=== PATIENT | female | born 1980 | race Caucasian/White ===

== ENCOUNTER 2018-12-15 10:11 | Observation (INO) | payer OTHER ==
[2018-12-15 10:14] VITALS: BMI 28.3
[2018-12-15 12:28] LABS: URINE BILIRUBIN NEGATIVE (NEGATIVE); URINE BLOOD TRACE-INTACT (NEGATIVE); URINE GLUCOSE (UA) NEGATIVE (NEGATIVE); URINE LEUKOCYTE ESTERASE NEGATIVE Leu/uL (NEGATIVE); URINE PROTEIN TRACE mg/dL (<30 mg/dL); URINE UROBILINOGEN 0.2 E.U./dL (<1 E.U./dL)
[2018-12-15 12:31] LABS: URINE APPEARANCE CLEAR (CLEAR); URINE COLOR YELLOW (YELLOW)
[2018-12-15] MEDS ORDERED: Sodium Chloride 0.9% 1,000 ML IV STA (12:31)
[2018-12-15 12:37] LABS: URINE BACTERIA MANY /hpf
--- NOTE | 2018-12-15 12:41 | ED PDOC ---
Arrival/HPI - General Chief Complaint: Lower Extremity Problem/Injury Historian: Patient - History of Present Illness Narrative History of Present Illness (Text): 12/15/18 12:33 38 year old F presents complaining for RUE and RLE joint pain w/ right foot s welling for the last couple days. Patient mentioned it was worst at night. She took tylenol which provided little relief. Patient visited Dr. Main yesterday who diagnosed her with rheumatoid arthritis and advised her to present to the ER for further evaluation and inpatient labs. PMD: Dr. Main Time/Duration: < week Symptom Onset: Sudden Symptom Course: Unchanged Activities at Onset: Light Past Medical History - Provider Review Nursing Documentation Reviewed: Yes - Past Medical History Past Medical History: No Previous - Psychiatric Hx Depression: No Hx Emotional Abuse: No Hx Physical Abuse: No Hx Substance Use: No - Past Surgical History Past Surgical History: No Previous - Surgical History Hx Section: Yes (X2) - Suicidal Assessment Feels Threatened In Home Enviroment: No Family/Social History - Physician Review Nursing Documentation Reviewed: Yes Family/Social History: Unknown Family HX Smoking Status: Never Smoked Hx Alcohol Use: No Hx Substance Use: No Allergies/Home Meds Allergies/Adverse Reactions: Allergies No Known Allergies Allergy (Verified 12/15/18 10:58) Home Medications: Home Meds Medication Instructions Recorded Confirmed No Known Home Med 12/15/18 12/15/18 Review of Systems - Physician Review All systems were reviewed & negative as marked: Yes - Review of Systems ENT: absent: Sore Throat, Rhinorrhea, Epistaxis Respiratory: absent: SOB, Cough, Wheezing Cardiovascular: absent: Chest Pain, Palpitations Gastrointestinal: absent: Abdominal Pain, Diarrhea, Nausea, Vomiting Musculoskeletal: Arthralgias (RLE, RUE), Joint Swelling (right ankle) Skin: absent: Rash, Laceration, Abscess Neurological: absent: Headache, Dizziness Physical Exam Vital Signs Reviewed: Yes Vital Signs Temp Pulse Resp BP Pulse Ox 12/15/18 10:12 98.1 F 106 H 18 123/75 99 Temperature: Afebrile Blood Pressure: Normal Pulse: Regular Respiratory Rate: Normal Appearance: Positive for: Well-Appearing, Non-Toxic, Comfortable Pain Distress: Mild Mental Status: Positive for: Alert and Oriented X 3 - Systems Exam Head: Present: Atraumatic, Normocephalic Pupils: Present: PERRL Extroacular Muscles: Present: EOMI Conjunctiva: Present: Normal Mouth: Present: Moist Mucous Membranes Neck: Present: Normal Range of Motion Respiratory/Chest: Present: Clear to Auscultation, Good Air Exchange. No: Respiratory Distress, Accessory Muscle Use Cardiovascular: Present: Regular Rate and Rhythm, Normal S1, S2. No: Murmurs Abdomen: No: Tenderness, Distention, Peritoneal Signs Back: Present: Normal Inspection Upper Extremity: Present: Normal Inspection. No: Cyanosis, Edema Lower Extremity: Present: Edema (mild right ankle edema) Neurological: Present: GCS=15, CN II-XII Intact, Speech Normal Skin: Present: Warm, Dry, Normal Color. No: Rashes Psychiatric: Present: Alert, Oriented x 3, Normal Insight, Normal Concentration Medical Decision Making ED Course and Treatment: 12/15/18 12:41 Impression: 38 year old F presents complaining for RUE and RLE joint pain w/ right foot swelling for the last couple days Plan: -- Labs --Solumedrol --Rocephin --Blood Culture --UA -- Urine Culture -- Toradol -- test -- Reassess and disposition Progress Notes: 12/15/18 13:38 Labs reviewed with unremarkable labs and trace blood and bacteria within the urine. Shared decision making with patient who is amenable to staying for Observation. Discussed case with Dr. Main(PCP) who requests for patient to stay in the hospital for Observation. - Lab Interpretations Lab Results: Urine Color Yellow (YELLOW) 12/15/18 12:04 Urine Appearance Clear (CLEAR) 12/15/18 12:04 Urine pH 6.0 (4.7-8.0) 12/15/18 12:04 Ur Specific Butler 1.025 (1.005-1.035) 12/15/18 12:04 Urine Protein Trace mg/dL (<30 mg/dL) H 12/15/18 12:04 Urine Glucose (UA) Negative mg/dL (NEGATIVE) 12/15/18 12:04 Urine Ketones Negative mg/dL (NEGATIVE) 12/15/18 12:04 Urine Blood Trace-intact (NEGATIVE) H 12/15/18 12:04 Urine Nitrate Negative (NEGATIVE) 12/15/18 12:04 Urine Bilirubin Negative (NEGATIVE) 12/15/18 12:04 Urine Urobilinogen 0.2 E.U./dL (<1 E.U./dL) 12/15/18 12:04 Ur Leukocyte Esterase Negative Ant/uL (NEGATIVE) 12/15/18 12:04 - Medication Orders Current Medication Orders: Sodium Chloride (Sodium Chloride 0.9%) 1,000 mls @ 999 mls/hr IV .Q1H1M STA Stop: 12/15/18 13:31 Ketorolac Tromethamine (Toradol) 30 mg IVP ONCE ONE Stop: 12/15/18 12:32 Discontinued Medications Ketorolac Tromethamine (Toradol) 30 mg IM Q6 YOSEF - Scribe Statement The provider has reviewed the documentation as recorded by the Steven Little All medical record entries made by the Steven were at my direction and personally dictated by me. I have reviewed the chart and agree that the record accurately reflects my personal performance of the history, physical exam, medical decision making, and the department course for this patient. I have also personally directed, reviewed, and agree with the discharge instructions and disposition. Disposition/Present on Arrival - Present on Arrival Any Indicators Present on Arrival: No History of DVT/PE: No History of Uncontrolled Diabetes: No Urinary Catheter: No History of Decub. Ulcer: No History Surgical Site Infection Following: None - Disposition Have Diagnosis and Disposition been Completed?: Yes Diagnosis: Joint pain Disposition Time: 13:30 Patient Plan: Observation Condition: STABLE Referrals: Will Main MD [Primary Care Provider] - Follow up with primary Forms: [phone] ([place])
[2018-12-15 12:58] LABS: BASO # 0.01 K/mm3 (0.0-2.0); BASO % 0.2 % (0.0-3.0); EOS % 0.7 % (1.5-5.0); HEMOGLOBIN 10.9 g/dL (12.0-16.0); LYMPH # 1.9 (1.2-3.4); LYMPH % 32.5 % (22.0-35.0); MEAN CELL VOLUME 75.4 fl (80.0-105.0); MEAN CORPUSCULAR HEMOGLOBIN 23.9 pg (25.0-35.0); MEAN CORPUSCULAR HGB CONC 31.7 g/dl (31.0-37.0); MEAN PLATELET VOLUME 9.8 fl (7.0-11.0); MONO # 0.3 (0.1-0.6); MONO % 4.4 % (1.0-6.0); RBC 4.56 10^6/uL (3.5-6.1); RED CELL DISTRIBUTION WIDTH 14.4 % (11.5-14.5); WHITE BLOOD COUNT 5.9 10^3/uL (4.5-11.0)
[2018-12-15 13:07] LABS: INR 1.42; PARTIAL THROMBOPLASTIN TIME 33.4 Seconds (26.9-38.3); PROTHROMBIN TIME 16.1 SECONDS (9.4-12.5)
[2018-12-15 13:11] LABS: ALB/GLOB RATIO 0.9 (1.1-1.8); ALBUMIN 3.8 g/dL (3.0-4.8); ALT/SGPT 21 U/L (7-56); AST/SGOT 28 U/L (14-36); BLOOD UREA NITROGEN 10 mg/dL (7-21); CALCIUM 8.9 mg/dL (8.4-10.5); GFR NON-AFRICAN AMERICAN > 60; URIC ACID 4.3 mg/dL (2.5-6.2)
[2018-12-15 13:23] LABS: TROPONIN I < 0.01 ng/mL
[2018-12-15] MEDS ORDERED: cefTRIAXone 1 gm 1 GM/100 ML BAG IVPB STA (13:37)
[2018-12-15] MEDS: MethylPREDNISolone 40 mg Vial IVP SCH (21:23)
[2018-12-15 22:08] VITALS: RESP 18
[2018-12-15] MEDS: Vancomycin 1gm in NS 250ml 1 GM/250 ML BAG IVPB SCH (23:53)
[2018-12-16] MEDS ORDERED: Pantoprazole 40 mg EC Tab PO SCH (06:00)
[2018-12-16] MEDS: Vancomycin 1gm in NS 250ml 1 GM/250 ML BAG IVPB SCH (09:32)
[2018-12-16] MEDS: MethylPREDNISolone 40 mg Vial IVP SCH (09:32)
[2018-12-16] MEDS ORDERED: cefTRIAXone 2 GM IN NS 2 GM/100 ML BAG IVPB SCH (10:00)
[2018-12-16] MEDS ORDERED: cefTRIAXone 1 gm 1 GM/100 ML BAG IVPB SCH (10:00)
[2018-12-16] MEDS ORDERED: Enoxaparin 40 mg Syringe SC SCH (10:00)
[2018-12-16 11:10] VITALS: O2SAT 96
[2018-12-16 15:19] VITALS: BP 115/71; PULSE 95; TEMP 98
[2018-12-16 18:05] LABS: HEPATITIS B SURFACE AG Negative (NEGATIVE)
[2018-12-16 18:11] LABS: HEPATITIS A IGM NEGATIVE (NEGATIVE); HEPATITIS B CORE AB NEGATIVE (NEGATIVE)
[2018-12-16 18:23] LABS: HEPATITIS C ANTIBODY NEGATIVE (NEGATIVE)
--- NOTE | 2018-12-16 21:25 | CON ---
DATE: 12/16/2018 LOCATION: The patient is seen in 563, bed 2 this morning. CHIEF COMPLAINT: Joint pain x1 month. HISTORY OF PRESENT ILLNESS: A 38-year-old Belgian female, with no significant past medical history, who is admitted now with joint pain. She stated it started with her ankles, bilateral ankle joint, bilateral knee joint, bilateral hip joint, shoulders, and elbows and arms x1 month duration. She states she had a rare , low-grade fevers, one episode of diarrhea. No chest pain. No headaches. PAST MEDICAL HISTORY: Noncontributory. PAST SURGICAL HISTORY: Significant for a x2. ALLERGY: THE PATIENT HAS NO KNOWN ALLERGIES. MEDICATIONS: At home include omeprazole and Pepcid. SOCIAL HISTORY: A pleasant [place] female, who has been in this country now for years. The last travel outside of [facility] was to [place] one year ago. She has no pets. She is with for many years. She has two children of 5 and 10 years old. She is not a smoker. REVIEW OF SYSTEMS: A 12-point review of systems is performed. PHYSICAL EXAMINATION: On exam; GENERAL: She is in bed. No acute distress. VITAL SIGNS: Temperature is 97.4; heart rate of 86, it was up to 106; a respiratory rate of 18; and blood pressure of 112/70. HEENT: Unremarkable. NECK: Supple. LUNGS: Decreased breath sounds. HEART: Normal S1 and S2. ABDOMEN: Soft and nontender. No rebound. No guarding. EXAMINATION OF JOINTS: Revealed no significant erythema. There is some edema of both ankles and no breaking of skin. LABORATORY DATA: Reveals a white count of 5.9, hemoglobin of 10, MCV is 75, and platelets of 395. Chemistry reveals the patient has a creatinine of 0.6. C-reactive protein is 184. LFTs are normal. Sed rate is 93, and urinalysis is noted with 1 to 3 wbcs. Microbiology reveals the urine culture has no growth, and the patient had an ultrasound of the extremities which no results are available. ASSESSMENT AND PLAN: A 38-year-old female from [place] presenting with; 1. Polyarticular arthritis. I doubt gonorrhea in a patient who has a stable marriage with two children in a monogamous relationship, also malalignments in her differential diagnosis, although she has no pets, not been outside of the [facility] which is unusual for Staphylococcus aureus to get bacteremia and polyarticular joint infection with no fevers. We will order blood cultures nevertheless. Group A strep and pneumococcus may behave this way. This is I doubt a post-streptococcal arthritis, she did not have any streptococcal symptoms. The acute rheumatic fever is in her differential diagnosis and since she is from [place] although she did not have a viral illness or a streptococcal infection that she knows of. We will order a hepatitis B although her liver function tests s are not elevated. We will also order a Parvovirus B19 workup. I doubt chikungunya, which may behave like this, but she has no travel history to anywhere with chikungunya. We will empirically start the patient on vancomycin, ceftriaxone, and doxycycline. Dr. Main had started the patient on steroids. Dopplers are pending. She should have a rheumatology evaluation. We will order a Parvovirus B19 antibodies and PCR in addition to hepatitis B, hepatitis panel and hepatitis DNA PCR and hepatitis C viral RNA level. She has not had a rubella vaccine recently, which may also behave as such. I doubt infectious etiology. We will in addition to chikungunya, we will order an HLA-B27 for her reactive arthritis, HLA-B27 antigen and we will follow closely with you. She is pending a Rheumatology evaluation. Morgan Kirkland MD
--- NOTE | 2018-12-17 22:54 | US ---
HISTORY: Leg pain and swelling. Evaluate for DVT PHYSICIAN(S): Rodger Dhaliwal MD. TECHNIQUE: Duplex sonography and color-flow Doppler with graded compression were used to evaluate the deep venous systems of both lower extremities. FINDINGS: The visualized deep venous systems of both lower extremities are sonographically normal and compressible. Normal wave forms and augmentation are seen. There is no sonographic evidence for deep venous thrombosis in the visualized segments of both lower extremities. IMPRESSION: No sonographic evidence for deep venous thrombosis in the visualized segments of both lower extremities.
--- NOTE | 2018-12-18 09:15 | HP ---
DATE OF EXAM: 12/17/2018 CHIEF COMPLAINT: The patient came in complaining of severe generalized joint pains and weakness. 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 She came into the office complaining of generalized joint pain, hips, knee, and ankle. She cannot get up except with difficulty. She has kids, she cannot serve them, her is helping her and the patient is unable to ambulate because of associated generalized multi or polyarthritis or multiple joint pain. Denied any fever, any chills, any nausea, any vomiting, or any trauma. Patient has mainly pain in her both feet, especially when she stands up and also pain in her knees and hips. Also, she complained of pain in her shoulders and elbows. Patient one month ago, she had some dental work, but she never had any history of cardiac disease. No other medical problem except acid reflux symptoms, which is being controlled with medications. PAST MEDICAL HISTORY: As above, acid reflux symptoms. ALLERGIES: NO KNOWN ALLERGIES. SOCIAL HISTORY: No smoking, no drinking. She lives with her and has 2 children. She is taking care of them. FAMILY HISTORY: Negative for cancer or any hematological disorders. REVIEW OF SYSTEMS: As above. GI symptoms include acid reflux. She has H. pylori testing still pending after being treated. PHYSICAL EXAMINATION: GENERAL: Patient was admitted overnight on 12/15/2018. Patient was seen on 12/16/2018 and evaluated. Initially, she was very weak. When I saw the patient, she felt a lot better. She was able to stand up. Patient received steroids, Toradol, which did help. HEAD AND NECK: Normal. No JVD. No thyromegaly. CHEST: Clear bilateral. CARDIAC: First sound and second sound normal. No murmur, rub, or gallop. ABDOMEN: Soft, obese, and nontender. EXTREMITIES: No edema. NEUROLOGIC: Normal. LABORATORY DATA: White count 5.9, hemoglobin 10.9, hematocrit 34.4, and platelets 395. Chemistry; sodium 136, potassium 3.9, chloride 102, bicarb 25, BUN 10, creatinine 0.6. Liver function test is normal. C-reactive protein 184. Patient had troponin which was negative. AST, ALT, and alk phos is normal. Patient had hepatitis profile, A, B, and C which is normal. RPR is nonreactive. Urinalysis shows 2 to 5 red blood cells, 1 to 3 white blood cells, and 6 to 8 epithelial cells. Patient's prior PT/PTT was within normal range. Sedimentation rate was 93. ADMITTING DIAGNOSIS: Severe polyarthritis. IMPRESSION: This is a 38-year-old young female with insignificant past medical history, came in with polyarthralgia symptoms, and tenderness initially in her plantar fascitis area bilaterally, also of both hips with some sort of decreased range of motion due to pain. Patient improved significantly, it was tolerable on steroids. Patient was admitted for observation. She was doing well, walking around. No symptoms. Urine culture came back negative. Blood cultures came back negative. We will discharge the patient for now. We will get the second set of blood cultures. On p.o. Augmentin and doxycycline. Plus we are going to give her ibuprofen, Medrol Dosepak, and Protonix 40 mg. PLAN: Patient had serological workup which came back negative. Negative AUBREE. Negative DNA. Negative . Negative anti-CCP. We will admit the patient, give her steroids, IV Toradol, ibuprofen, Protonix. 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 Patient was already seen by ID consultations and her hepatitis C came back negative, RPR negative. DISCHARGE MEDICATIONS: Protonix 40 mg, Medrol Dosepak, Motrin 600 mg, doxycycline 100 mg b.i.d., and Vantin 100 mg b.i.d. Will Main MD
== END 2018-12-16 18:06 | disposition home or self-care (01) ==
LOC: ED 10:11 → ERH 13:36 → 5RNO 16:50
PROVIDERS: ADMIT Internal Medicine; ATTEND Internal Medicine
DX: M13.0 Polyarthritis, unspecified (principal); M06.9 Rheumatoid arthritis, unspecified; I00 Rheumatic fever without heart involvement; K21.9 Gastro-esophageal reflux disease without esophagitis; Z98.891 History of uterine scar from previous surgery
CPT/HCPCS: 36415; 80053; 80074; 81001; 81025; 84484; 84550; 85025; 85610; 85651; 85730; 86140; 86592; 86618; 86747; 86780; 86790; 86812; 87040; 87086; 87389; 87517; 87521; 93970; 96365; 96372; 96375; 96376; 99285; G0378; J0696; J1650; J1885; J2920; J2930; J7030